=== PATIENT | male | born 1970 | race African-American/Black ===

== ENCOUNTER 2019-10-04 04:39 | Emergency (ER) | payer OTHER ==
[~2019-10-04] VITALS: Ht 175.3 cm; Wt 80.7 kg
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
[2019-10-04 04:50] VITALS: BP 180/106
[2019-10-04] MEDS ORDERED: IV RINGERS SOLUTION,LACTATED 1,000 ML IV SCH (05:30)
[2019-10-04] MEDS ORDERED: DEXTROSE 50% 25 GM / 50ML DISP.SYRIN. IV ONE (05:30)
--- NOTE | 2019-10-04 05:30 | RAD ---
PORTABLE CHEST 1V Clinical Indication: Dyspnea, cough. Comparison: None. Findings: The cardiomediastinal silhouette is normal. Lungs are clear. There is no pneumothorax. No pleural effusion is appreciated. No acute bone abnormality. IMPRESSION: No acute cardiopulmonary process. Electronically signed by: César Chiang MD (10/04/2019 5:27 AM) [id number]
[2019-10-04 06:27] LABS: BASO % 1 % (0-3); EOS # 0.1 x10^3/uL (0.0-0.7); EOS % 1 % (0-3); HEMATOCRIT 42.9 % (39.0-53.0); HEMOGLOBIN 14.3 g/dL (13.0-17.5); LYMPH # 1.2 x10^3/uL (1.0-4.8); LYMPH % 18 % (24-48); MEAN CORPUSCULAR HEMOGLOBIN 29 pg (25-35); MEAN CORPUSCULAR HGB CONC 33 g/dL (31-37); MEAN CORPUSCULAR VOLUME 87 fL (79-100); MONO # 0.5 x10^3/uL (0.0-1.1); MONO % 8 % (0-9); NEUT # 4.9 x10^3uL (1.8-7.7); NEUT % 72 % (31-73); PLATELET COUNT 263 x10^3/uL (140-400); RED BLOOD COUNT 4.93 x10^6/uL (4.30-5.70); RED CELL DISTRIBUTION WIDTH 13.5 % (11.5-14.5); WHITE BLOOD COUNT 6.8 x10^3/uL (4.0-11.0)
[2019-10-04 06:30] LABS: BGAS PH 7.42 (7.35-7.46)
[2019-10-04 06:37] LABS: CALCIUM 9.2 mg/dL (8.5-10.1); CREATININE 0.9 mg/dL (0.7-1.3); GFR 108.1; POTASSIUM 3.8 mmol/L (3.5-5.1)
[2019-10-04 06:41] LABS: BACTERIA,URINE 0 /HPF (0-FEW); BILIRUBIN,URINE NEG (NEG); CLARITY,URINE CLEAR; COLOR,URINE YELLOW; GLUCOSE,URINE >=1000 mg/dL (NEG); NITRITE,URINE NEG (NEG); RBC,URINE 0 /HPF (0-2); SQUAMOUS EPITHELIAL CELL,UR FEW /LPF; UROBILINOGEN,URINE 0.2 mg/dL (0.2 mg/dL); WBC,URINE 0 /HPF (0-4)
[2019-10-04 06:43] LABS: ALBUMIN 3.9 g/dL (3.4-5.0); DIRECT BILIRUBIN 0.2 mg/dL (0.0-0.2); MAGNESIUM 1.9 mg/dL (1.8-2.4); TOTAL BILIRUBIN 0.9 mg/dL (0.2-1.0); TOTAL PROTEIN 7.1 g/dL (6.4-8.2)
--- NOTE | 2019-10-05 23:08 | EKG ---
[address] [address] Test Date: 2019-10-04 Test Time: 05:07:04 Pat Name: LIZETTE FRANK Department: Room: Gender: M Outside Rigger: MCKINLEY : 1970 Requested By: GUERITA MEDINA Order Number: [id number] Reading MD: Arun Plascencia Measurements Intervals [place] Rate: 62 P: 71 [place]: 176 QRS: 61 QRSD: 80 T: 8 QT: 428 QTc: 437 Interpretive Statements SINUS RHYTHM ST & T ABNORMALITY, CONSIDER INFEROLATERAL ISCHEMIA OR LEFT VENTRICULAR STRAIN ABNORMAL ECG RI6.02 No previous ECG available for comparison Electronically Signed On 10-08-2019 7:45:29 CDT by Arun Plascencia
== END 2019-10-04 08:30 | disposition left against medical advice (07) ==
LOC: ER 04:39
DX: E11.649 Type 2 diabetes mellitus with hypoglycemia without coma (principal); I10 Essential (primary) hypertension; Z88.0 Allergy status to penicillin
CPT/HCPCS: 36415; 71045; 80048; 80076; 81001; 82550; 82803; 82947; 83690; 83735; 84443; 84484; 85025; 85610; 85730; 93005; 96361; 96374; 99285; J7120

== ENCOUNTER 2019-10-06 08:38 | Emergency (ER) | payer OTHER ==
[~2019-10-06] VITALS: Ht 175.3 cm; Wt 80.7 kg
[2019-10-06 09:42] VITALS: BP 160/90
--- NOTE | 2019-10-06 09:53 | PHYS DOC ---
Past History Past Medical History: Diabetes Additional Past Medical Histor: diabetic seizures Past Surgical History: No Surgical History Alcohol Use: None General Adult EDM: Chief Complaint: BLOOD SUGAR PROBLEM HPI: HPI: Patient is a 49-year-old male who was brought here by EMS from the half-way house because of low blood sugar. Patient has history of diabetes, he is on short acting insulin and long-acting insulin. Patient took his insulin last night and did not eat anything, he went to sleep. Patient woke up this morning feeling weak so he checked his blood sugar and was low. EMS were called to take him here for evaluation his blood sugar was 49 by EMS. Patient denies any chest pain, no abdominal pain, no nausea vomiting. Review of Systems: Review of Systems: Constitutional: Denies fever or chills Eyes: Denies change in visual acuity HENT: Denies nasal congestion or sore throat Respiratory: Denies cough or shortness of breath Cardiovascular: Denies chest pain or edema GI: Denies abdominal pain, nausea, vomiting, bloody stools or diarrhea : Denies dysuria Musculoskeletal: Denies back pain or joint pain Integument: Denies rash Neurologic: Denies headache, focal weakness or sensory changes Endocrine: Denies polyuria or polydipsia Lymphatic: Denies swollen glands Psychiatric: Denies depression or anxiety Heart Score: Risk Factors: Risk Factors: DM, Current or recent (<one month) smoker, HTN, HLP, family history of CAD, obesity. Risk Scores: Score 0 - 3: 2.5% MACE over next 6 weeks - Discharge Home Score 4 - 6: 20.3% MACE over next 6 weeks - Admit for Clinical Observation Score 7 - 10: 72.7% MACE over next 6 weeks - Early Invasive Strategies Allergies: Allergies: Allergies Coded Allergies Type Severity Reaction Last Updated Verified Penicillins Allergy Intermediate 10/04/19 Yes Physical Exam: PE: Constitutional: Well developed, well nourished, no acute distress, non-toxic appearance. [] HENT: Normocephalic, atraumatic, bilateral external ears normal, oropharynx moist, no oral exudates, nose normal. [] Eyes: PERRLA, EOMI, conjunctiva normal, no discharge. [] Neck: Normal range of motion, no tenderness, supple, no stridor. [] Cardiovascular:Heart rate regular rhythm, no murmur [] Lungs & Thorax: Bilateral breath sounds clear to auscultation [] Abdomen: Bowel sounds normal, soft, no tenderness, no masses, no pulsatile masses. [] Skin: Warm, dry, no erythema, no rash. [] Back: No tenderness, no CVA tenderness. [] Extremities: No tenderness, no cyanosis, no clubbing, ROM intact, no edema. [] Neurologic: Alert and oriented X 3, normal motor function, normal sensory function, no focal deficits noted. [] Psychologic: Affect normal, judgement normal, mood normal. [] Current Patient Data: Labs: Laboratory Tests Test 10/06/19 08:43 10/06/19 09:39 Glucose (Fingerstick) 67 mg/dL (70-99) L 153 mg/dL (70-99) H Vital Signs: Vital Signs Date Time Temp Pulse Resp B/P (MAP) Pulse Ox O2 Delivery O2 Flow Rate FiO2 10/06/19 09:42 97.5 78 18 160/90 (113) Room Air EKG: EKG: [] Radiology/Procedures: Radiology/Procedures: [] Course & Med Decision Making: Course & Med Decision Making Pertinent Labs and Imaging studies reviewed. (See chart for details) Patient was given food to eat in the ED, his blood sugar has been stabilized above 100. Patient will be discharged home. Patient was given education about eating while taking insulin. Robert Disclaimer: Robert Disclaimer: This electronic medical record was generated, in whole or in part, using a voice recognition dictation system. Departure Departure: Impression: Primary Impression: Hypoglycemia Disposition: HOME, SELF-CARE Condition: STABLE Referrals: PCP,CLEMENCIA (PCP) follow up with your doctor next week, be sure to eat while you are taking insulin. Patient Instructions: Hypoglycemia (Low Blood Sugar) CINDY TRUJILLO DO October 06, 2019 09:53
== END 2019-10-06 10:00 | disposition home or self-care (01) ==
LOC: ER 08:38
DX: E11.649 Type 2 diabetes mellitus with hypoglycemia without coma (principal); Z88.0 Allergy status to penicillin
CPT/HCPCS: 82947; 99283

== ENCOUNTER 2019-10-20 14:10 | Emergency (ER) | payer OTHER ==
[~2019-10-20] VITALS: Ht 175.3 cm; Wt 80.9 kg
--- NOTE | 2019-10-20 14:45 | PHYS DOC ---
Past History Past Medical History: Diabetes, Hypertension Additional Past Medical Histor: diabetic seizures Past Surgical History: No Surgical History Alcohol Use: None General Adult EDM: Chief Complaint: HYPOGLYCEMIA HPI: HPI: 49-year-old male presents with hypoglycemia. He was brought in by EMS. The patient is staying at the [facility] and they found him minimally responsive. They checked his blood sugar because he is a known diabetic. It was 20. They called an ambulance. Ambulance gave him dextrose and his blood sugar improved to 70 on arrival. He was also alert and oriented on arrival. Patient tells me he has been feeling well. He takes about 7 units of regular insulin per meal. He does not believe that he took too many units with his last meal, but does say it is possible. He draws his insulin up out of a vial in stead of using a pen. He takes about 18 units of long-acting at night. Patient is feeling good at this time. Denies fever chills. He has tested negative for COVID-19 3 times. Review of Systems: Review of Systems: Constitutional: Denies fever or chills Eyes: Denies change in visual acuity HENT: Denies nasal congestion or sore throat Respiratory: Denies cough or shortness of breath Cardiovascular: Denies chest pain or edema GI: Denies abdominal pain, nausea, vomiting, bloody stools or diarrhea : Denies dysuria Musculoskeletal: Denies back pain or joint pain Integument: Denies rash Neurologic: Denies headache, focal weakness or sensory changes Endocrine: Hypoglycemia Lymphatic: Denies swollen glands Psychiatric: Denies depression or anxiety Heart Score: Risk Factors: Risk Factors: DM, Current or recent (<one month) smoker, HTN, HLP, family history of CAD, obesity. Risk Scores: Score 0 - 3: 2.5% MACE over next 6 weeks - Discharge Home Score 4 - 6: 20.3% MACE over next 6 weeks - Admit for Clinical Observation Score 7 - 10: 72.7% MACE over next 6 weeks - Early Invasive Strategies Allergies: Allergies: Allergies Coded Allergies Type Severity Reaction Last Updated Verified Penicillins Allergy Intermediate 10/04/19 Yes Physical Exam: PE: Constitutional: Well developed, well nourished, no acute distress, non-toxic appearance. [] HENT: Normocephalic, atraumatic, bilateral external ears normal, oropharynx moist, no oral exudates, nose normal. [] Eyes: PERRLA, EOMI, conjunctiva normal, no discharge. [] Neck: Normal range of motion, no tenderness, supple, no stridor. [] Cardiovascular: Heart rate regular rhythm, no murmur [] Lungs & Thorax: Bilateral breath sounds clear to auscultation [] Abdomen: Bowel sounds normal, soft, no tenderness, no masses, no pulsatile odilon s. [] Skin: Warm, dry, no erythema, no rash. [] Back: No tenderness, no CVA tenderness. [] Extremities: No tenderness, no cyanosis, no clubbing, ROM intact, no edema. [] Neurologic: Alert and oriented X 3, normal motor function, normal sensory function, no focal deficits noted. [] Psychologic: Affect normal, judgement normal, mood normal. [] Current Patient Data: Labs: Laboratory Tests Test 10/20/19 14:14 10/20/19 14:40 Glucose (Fingerstick) 70 mg/dL (70-99) 145 mg/dL (70-99) H Vital Signs: Vital Signs Date Time Temp Pulse Resp B/P (MAP) Pulse Ox O2 Delivery O2 Flow Rate FiO2 10/20/19 14:21 97.6 71 16 154/99 (117) 100 Room Air EKG: EKG: [] Radiology/Procedures: Radiology/Procedures: [] Course & Med Decision Making: Course & Med Decision Making Pertinent Labs and Imaging studies reviewed. (See chart for details) The patient's blood sugar has improved. He was given some food. His other labs are essentially unremarkable. The patient is feeling better at this time. He is stable for discharge. [] Dragon Disclaimer: Dragon Disclaimer: This electronic medical record was generated, in whole or in part, using a voice recognition dictation system. Departure Departure: Impression: Primary Impression: Hypoglycemia associated with diabetes Disposition: HOME/RESIDENCE PRIOR TO ADM Condition: IMPROVED Referrals: PCP,CLEMENCIA (PCP) Patient Instructions: Hypoglycemia, [id number] MARIA DE JESUS VALENZUELA DO October 20, 2019 14:45
[2019-10-20 15:18] LABS: BASO % 1 % (0-3); EOS # 0.1 x10^3/uL (0.0-0.7); EOS % 1 % (0-3); HEMATOCRIT 47.2 % (39.0-53.0); HEMOGLOBIN 15.3 g/dL (13.0-17.5); LYMPH # 1.1 x10^3/uL (1.0-4.8); LYMPH % 16 % (24-48); MEAN CORPUSCULAR HEMOGLOBIN 29 pg (25-35); MEAN CORPUSCULAR HGB CONC 32 g/dL (31-37); MEAN CORPUSCULAR VOLUME 89 fL (79-100); MONO # 0.4 x10^3/uL (0.0-1.1); MONO % 6 % (0-9); NEUT # 5.3 x10^3uL (1.8-7.7); NEUT % 76 % (31-73); PLATELET COUNT 233 x10^3/uL (140-400); RED BLOOD COUNT 5.31 x10^6/uL (4.30-5.70)
[2019-10-20 15:55] LABS: CALCIUM 9.1 mg/dL (8.5-10.1); GFR 95.7
[2019-10-20 16:01] LABS: ALBUMIN 3.9 g/dL (3.4-5.0); TOTAL BILIRUBIN 1.5 mg/dL (0.2-1.0); TOTAL PROTEIN 7.7 g/dL (6.4-8.2)
[2019-10-20 16:15] VITALS: BP 164/90
== END 2019-10-20 16:18 | disposition home or self-care (01) ==
LOC: ER 14:10
DX: E11.65 Type 2 diabetes mellitus with hyperglycemia (principal); I10 Essential (primary) hypertension; Z88.0 Allergy status to penicillin
CPT/HCPCS: 36415; 80053; 82947; 85025; 99283

== ENCOUNTER 2020-08-26 06:05 | Emergency (ER) | payer OTHER ==
[~2020-08-26] VITALS: Ht 175.3 cm; Wt 80.9 kg
[2020-08-26 06:14] VITALS: BP 142/75
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
[2020-08-26] MEDS ORDERED: CONTRAST GIVEN. MC PRN (06:30)
[2020-08-26] MEDS ORDERED: IOHEXOL 350 MG/ML 100 ML VIAL. IV ONE (06:30)
--- NOTE | 2020-08-26 07:49 | RAD ---
CT brain without contrast, CT C-spine without contrast HISTORY: Left wrist drop history, spinal cord injury, paralysis CT brain CT scan of the brain was done without contrast. There is no intracranial hemorrhage or subdural hemat adonis. There is no mass effect or shift of the midline. An acute CVA is not identified. Ventricles are normal in size. Sinuses are clear. A skull fracture is not identified. IMPRESSION: 1. No intracranial hemorrhage or acute finding noted. End impression CT cervical spine Axial CT images were obtained to the cervical spine. Sagittal and coronal reconstructed images were r eviewed. Patient's had previous posterior laminectomy and fusion from C3 through C6. There is hypertr ophic spurring on the anterior aspect of vertebral bodies C5-6 and C6-7. There is lucency about the s crews in C6 which can be related to motion. There is no spinal stenosis. Artifact off the screws and rods mildly limited evaluation the soft tissues. Thyroid is homogeneous. There is mild carotid artery calcification on each side. There is no acute fracture. C-spine is in normal alignment. IMPRESSION: 1. Previous posterior laminectomy and fusion. 2. Lucency about the screws in C6 which can be seen with motion. 3. No spinal stenosis noted. 4. No acute fracture. PQRS Compliance Statement: One or more of the following individualized dose reduction techniques were utilized for this examinat ion: 1. Automated exposure control 2. Adjustment of the mA and/or kV according to patient size 3. Use of iterative reconstruction technique Electronically signed by: Angel Aguilera MD (08/26/2020 7:46 AM) [id number]
[2020-08-26] MEDS ORDERED: HYDROcodone/APAP 5/325MG 1 TAB TABLET PO ONE (08:15)
== END 2020-08-26 10:18 | disposition short-term general hospital (02) ==
LOC: ER 06:05
DX: M21.332 Wrist drop, left wrist (principal); F82 Specific developmental disorder of motor function; I10 Essential (primary) hypertension; E11.9 Type 2 diabetes mellitus without complications
CPT/HCPCS: 70450; 72125; 82947; 99285-25